=== PATIENT | male | born 1985 | race American Indian/Alaskan Native ===

== ENCOUNTER 2018-05-17 08:45 | Emergency (ER) | payer SELFPAY ==
--- NOTE | 2018-05-17 09:26 | Cat Scan Report ---
FINAL REPORT EXAM: CT HEAD/BRAIN WO CON HISTORY: trauma, LARA, +LOC TECHNIQUE: CT of the Head without IV contrast. PRIORS: None currently available. FINDINGS: There is no evidence for acute ischemia. There is no hemorrhage. There is no midline shift. There is no hydrocephalus. There is no mass. Age appropriate to-white matter attenuation is noted. There is no calvarial fracture. The temporal bones demonstrate aerated mastoid air cells. The middle ears appear unremarkable. Paranasal sinuses are unremarkable. Globes are intact. IMPRESSION: No acute intracranial findings.
--- NOTE | 2018-05-17 09:29 | Cat Scan Report ---
FINAL REPORT EXAM: CT CERVICAL SPINE WO CON HISTORY: Trauma TECHNIQUE: CT of the Cervical Spine without IV contrast. Coronal and sagittal reformatted images wer e provided. PRIORS: None currently available. FINDINGS: There is no fracture. There is no subluxation. There is no atlantooccipital dislocation. C1-C2: Intact. C4-C6: Xyjo-cb-glhijofg degenerative discs. No significant canal narrowing. Some neural foraminal tova rowing. Remaining cervical levels do not demonstrate significant canal or foraminal narrowing. Prevertebral soft tissue structures are unremarkable. IMPRESSION: No fracture.
[2018-05-17] MEDS ORDERED: SUBLIMAZE IV ONE (10:09)
[2018-05-17] MEDS ORDERED: ZOFRAN IV ONE (10:09)
--- NOTE | 2018-05-17 10:14 | Emergency Department Report ---
HPI - General Chief Complaint: Multiple Trauma Time Seen by Provider: 05/17/18 10:02 - [facility] HPI: Noel 26 The patient is a 32-year-old male presenting with a chief complaint of pain after fall from deck. The patient states he was working on a deck when he felt through the floor landing on the back of his head approximately 10 feet below. Patient admits to loss of consciousness he was told for about 30 seconds. Patient complains of pain head, neck, right knee and right shoulder. Patient gets his pain score 10/10. Location: [See above] Duration: [See above] Quality: Pain Severity: 10 Modifying factors: [see above] Context: [see above] Mode of transportation: [not driving] ED Past Medical Hx - Past Medical History Previous Medical History?: No - Surgical History Past Surgical History?: No - Family History Family history: no significant - Social History Smoking Status: Never Smoker Substance Use Type: None (denies illicit drug use) - Medications Home Medications: Home Medications Medication Instructions Recorded Confirmed Last Taken Type Cyclobenzaprine [Flexeril] 10 mg PO TID PRN #14 tablet 10/31/15 Unknown Rx HYDROcodone/APAP 5-325 [Tad 1 - 2 each PO Q6HR PRN #14 tablet 10/31/15 Unknown Rx 5/325] Ibuprofen [Motrin 800 MG tab] 800 mg PO Q8HR PRN #20 tablet 10/31/15 Unknown Rx Cyclobenzaprine [Flexeril] 10 mg PO TID PRN #15 tablet 01/24/16 Unknown Rx Ibuprofen [Motrin 800 MG tab] 800 mg PO Q8HR PRN #20 tablet 01/24/16 Unknown Rx Cyclobenzaprine [Flexeril] 10 mg PO TID PRN #14 tablet 05/17/18 Unknown Rx HYDROcodone/APAP 5-325 [Tad 1 - 2 each PO Q6HR PRN #14 tablet 05/17/18 Unknown Rx 5/325] Ibuprofen [Motrin 800 MG tab] 800 mg PO Q8HR PRN #20 tablet 05/17/18 Unknown Rx ED Review of Systems ROS: Stated complaint: FALLEN OFF DECK/NECK/BACK PAIN Other details as noted in HPI Constitutional: no symptoms reported Eyes: denies: eye pain ENT: denies: throat pain Respiratory: no symptoms reported Cardiovascular: denies: chest pain Endocrine: no symptoms reported Gastrointestinal: abdominal pain Genitourinary: denies: dysuria Musculoskeletal: back pain, arthralgia Neurological: headache Physical Exam - Physical Exam Vital Signs: Vital Signs 05/17/18 08:54 Respiratory 18 Rate O2 Sat by Pulse 100 Oximetry Vital Signs 05/17/18 05/17/18 05/17/18 08:54 11:27 11:57 Temperature Pulse Rate Respiratory 18 16 16 Rate Blood Pressure [Left] O2 Sat by Pulse 100 Oximetry 05/17/18 14:25 Temperature 98.4 F Pulse Rate 88 Respiratory 20 Rate Blood Pressure 144/84 [Left] O2 Sat by Pulse 99 Oximetry Physical Exam: GENERAL: The patient is well-developed well-nourished male lying on stretcher not appearing to be in acute distress. [] HEENT: Normocephalic. Atraumatic. Extraocular motions are intact. Patient has moist mucous membranes. NECK: Supple. Mild cervical axial tenderness to palpation. No axial step-offs CHEST/LUNGS: Clear to auscultation. There is no respiratory distress noted. HEART/CARDIOVASCULAR: Regular. There is no tachycardia. There is no gallop rub or murmur. ABDOMEN: Abdomen is soft, with discomfort to palpation in the right upper quadrant and right lower quadrant. Patient has normal bowel sounds. There is no abdominal distention. SKIN: There is no rash. There is no edema. There is no diaphoresis. NEURO: The patient is awake, alert, and oriented. The patient is cooperative. The patient has no focal neurologic deficits. The patient has normal speech MUSCULOSKELETAL: There is tenderness to palpation of the midthoracic spine and lower lumbar spine. No axial step-offs. ED Course Vital Signs 05/17/18 08:54 Respiratory 18 Rate O2 Sat by Pulse 100 Oximetry ED Medical Decision Making - Lab Data Result diagrams: 05/17/18 10:16 05/17/18 10:16 Laboratory Tests 05/17/18 05/17/18 05/17/18 10:16 10:16 10:16 WBC 4.4 L RBC 4.95 Hgb 13.9 Hct 42.7 MCV 86 MCH 28 MCHC 33 RDW 13.1 L Plt Count 151 Lymph % (Auto) 38.4 H Villalba % (Auto) 10.3 H Eos % (Auto) 4.2 Baso % (Auto) 1.2 Lymph # 1.7 Villalba # 0.5 Eos # 0.2 Baso # 0.1 Seg Neutrophils % 45.9 Seg Neutrophils # 2.0 Sodium 140 Potassium 4.7 Chloride 102.7 Carbon Dioxide 29 Anion Gap 13 BUN 15 Creatinine 1.1 Estimated GFR > 60 BUN/Creatinine Ratio 14 Glucose 98 Calcium 8.8 Total Bilirubin 1.00 AST 36 ALT 22 Alkaline Phosphatase 47 Total Protein 6.2 L Albumin 4.1 Albumin/Globulin Ratio 2.0 Blood Type B POSITIVE Antibody Screen Negative - Radiology Data Radiology results: report reviewed (CT head, CT cervical spine, right shoulder x-ray, lumbar spine x-ray, thoracic spine x-ray, right knee x-ray, CT abdomen and pelvis), image reviewed (CT head, CT cervical spine, right shoulder thoracic spine x-ray, lumbar spine x-ray, right knee x-ray, CT abdomen and pelvis) interpreted by me: Right shoulder x-ray-no acute fracture, no dislocation Right knee x-ray-no acute fracture Thoracic spine x-ray-no acute fracture Lumbar spine x-ray-no acute fracture Findings [facility] [address] [place] [address] Cat Scan Report Signed Patient: ARIN TORRES MR#: [id number] : 1985 Acct:[id number] Age/Sex: 32 / M ADM Date: 05/17/18 Loc: ED Attending Dr: Ordering Physician: KEVEN SALAZAR MD Date of Service: 05/17/18 Procedure(s): CT head/brain wo con Accession Number(s): [id number] cc: ED MD MARIE FINAL REPORT EXAM: CT HEAD/BRAIN WO CON HISTORY: trauma, LARA, +LOC TECHNIQUE: CT of the Head without IV contrast. PRIORS: None currently available. FINDINGS: There is no evidence for acute ischemia. There is no hemorrhage. There is no midline shift. There is no hydrocephalus. There is no mass. Age appropriate to-white matter attenuation is noted. There is no calvarial fracture. The temporal bones demonstrate aerated mastoid air cells. The middle ears appear unremarkable. Paranasal sinuses are unremarkable. Globes are intact. IMPRESSION: No acute intracranial findings. Transcribed By: TYM Dictated By: LANE HENRIQUEZ MD Electronically Authenticated By: LANE HENRIQUEZ MD Signed Date/Time: 05/17/18925 DD/ 4 TD/TT: 05/17/[address] [address] Cat Scan Report Signed Patient: ARIN TORRES MR#: [id number] : 1985 Acct:[id number] Age/Sex: 32 / M ADM Date: 05/17/18 Loc: ED Attending Dr: Ordering Physician: KEVEN SALAZAR MD Date of Service: 05/17/18 Procedure(s): CT cervical spine wo con Accession Number(s): [id number] cc: KEVEN SALAZAR MD FINAL REPORT EXAM: CT CERVICAL SPINE WO CON HISTORY: Trauma TECHNIQUE: CT of the Cervical Spine without IV contrast. Coronal and sagittal reformatted images were provided. PRIORS: None currently available. FINDINGS: There is no fracture. There is no subluxation. There is no atlantooccipital dislocation. C1-C2: Intact. C4-C6: Zxat-hh-lyxmrvpm degenerative discs. No significant canal narrowing. Some neural foraminal narrowing. Remaining cervical levels do not demonstrate significant canal or foraminal narrowing. Prevertebral soft tissue structures are unremarkable. IMPRESSION: No fracture. Transcribed By: TYM Dictated By: LANE HENRIQUEZ MD Electronically Authenticated By: LANE HENRIQUEZ MD Signed Date/Time: 05/17/18928 DD/ 7 TD/TT: 05/17/[address] [address] XRay Report Signed Patient: ARIN TORRES MR#: [id number] : 1985 Acct:[id number] Age/Sex: 32 / M ADM Date: 05/17/18 Loc: ED Attending Dr: Ordering Physician: JOHNSON JOHNSON MD Date of Service: 05/17/18 Procedure(s): XR spine thoracic 3V Accession Number(s): [id number] cc: JOHNSON JOHNSON MD Fluoro Time In Minutes: RIGHT SHOULDER: Fall, pain. Routine views demonstrate normal bony and soft tissue structures with normal joint alignment of the shoulder. IMPRESSION: Normal study. Thoracic spine: Fall, pain. AP and lateral views demonstrates very minimal anterior wedging of the T12 body. No evidence of fracture deformity is noted. There is mild narrowing of the T12-L1 interspace. Minimal degenerative spurs are noted at the T11-12 interspace. The bones are well-mineralized. Normal alignment. Impression: No acute finding suspected. Lower thoracic degenerative change. AP AND LATERAL LUMBOSACRAL SPINE: Trauma, pain. The vertebral bodies are well mineralized and normal in alignment and vertebral height with well preserved interspace distances. The visualized portions of the posterior elements are normal. IMPRESSION: Normal study. Transcribed By: [facility] Dictated By: SHMUEL JOHNSON MD Electronically Authenticated By: SHMUEL JOHNSON MD Signed Date/Time: 05/17/18 1106 DD/ 1104 TD/TT: 05/17/181105 Findings [address] [address] XRay Report Signed Patient: ARIN TORRES MR#: [id number] : 1985 Acct:[id number] Age/Sex: 32 / M ADM Date: 05/17/18 Loc: ED Attending Dr: Ordering Physician: JOHNSON JOHNSON MD Date of Service: 05/17/18 Procedure(s): XR knee 3V RT Accession Number(s): [id number] cc: JOHNSON JOHNSON MD Fluoro Time In Minutes: RIGHT KNEE: Fall, pain. The bony architecture is intact without evidence of fracture or dislocation. No significant soft tissue abnormality is seen. IMPRESSION: Normal right knee. Transcribed By: [facility] Dictated By: SHMUEL JOHNSON MD Electronically Authenticated By: SHMUEL JOHNSON MD Signed Date/Time: 05/17/18 110 DD/ 1103 TD/TT: 05/17/181102 [address] [address] Cat Scan Report Signed Patient: ARIN TORRES MR#: [id number] : 1985 Acct:[id number] Age/Sex: 32 / M ADM Date: 05/17/18 Loc: ED Attending Dr: Ordering Physician: JOHNSON JOHNSON MD Date of Service: 05/17/18 Procedure(s): CT abdomen pelvis w con Accession Number(s): [id number] cc: JOHNSON JOHNSON MD FINAL REPORT EXAM: CT ABDOMEN PELVIS W CON HISTORY: right-sided abd pain after fall from 10 feet. TECHNIQUE: CT of the abdomen and pelvis was performed after the administration of intravenous contrast. Subsequently, CT of the abdomen and pelvis was performed in the delayed phase. 100 cc of Omnipaque 300 intravenous contrast were given. Reconstructions were included in the coronal and sagittal planes. PRIORS: 10/30/2015. FINDINGS: Lower thorax: Bilateral dependent atelectasis is seen. The visualized portions of the heart are normal. Liver: The liver is normal in attenuation. No intrahepatic biliary duct dilation. No focal hepatic lesions. No hepatic laceration. Gallbladder/ biliary system: No cholelithiasis. The common bile duct appears nondilated. Spleen: No evidence of splenic laceration. Pancreas: No evidence of pancreatic laceration. Kidneys: No evidence of renal laceration. Adrenal glands: No adrenal masses. Vasculature: The abdominal and pelvic vasculature is patent without variant anatomy. Lymph nodes: No enlarged lymph nodes are seen in the abdomen or pelvis. Bowel, mesentery, peritoneum: No bowel obstruction. No free air. Small volume of free fluid is seen in the pelvis. The appendix is normal. No colonic diverticulosis. No bowel wall thickening. Urinary bladder: No filling defects are seen. Pelvis: There is a small volume of free fluid in the pelvis which is slightly higher in attenuation than simple fluid. Abdominal wall: There is a small fat containing umbilical hernia. Bones: No acute or chronic osseous finding. IMPRESSION: 1. Small volume of free fluid in the pelvis which is slightly higher in attenuation than simple fluid could represent mild hemorrhagic fluid. No evidence of solid organ injury. 2. Small fat containing umbilical hernia. Transcribed By: MG Dictated By: PHILLY GALLEGO MD Electronically Authenticated By: PHILLY GALLEGO MD Signed Date/Time: 05/17/18 1409 DD/ 07 TD/TT: 05/17/181407 - Medical Decision Making CT abdomen and pelvis findings discussed with patient. Strong warnings to ret urn should he develops any concerning symptoms. Patient verbalized understanding - Differential Diagnosis closed head injury, cervical fracture, cervical strain, liver laceration, Critical care attestation.: If time is entered above; I have spent that time in minutes in the direct care of this critically ill patient, excluding procedure time. ED Disposition Clinical Impression: Closed head injury, Acute cervical myofascial strain, Abdominal contusion, Contusion of right knee, Contusion of right shoulder Disposition: TO HOME OR SELFCARE Is pt being admited?: No Does the pt Need Aspirin: No Condition: Stable Instructions: Muscle Strain (ED), Minor Head Injury (ED) Additional Instructions: Return to the emergency department immediately should you develop worsening symptoms, fever, inability to tolerate food or liquid or any other concerns. Prescriptions: Cyclobenzaprine [Flexeril] 10 mg PO TID PRN #14 tablet PRN Reason: Muscle Spasm HYDROcodone/APAP 5-325 [Tad 5/325] 1 - 2 each PO Q6HR PRN #14 tablet PRN Reason: Pain Ibuprofen [Motrin 800 MG tab] 800 mg PO Q8HR PRN #20 tablet PRN Reason: Pain, Moderate (4-6) Referrals: JANES BEACH MD [Primary Care Provider] - 3-5 Days SHMUEL ERICKSON MD [Staff Physician] - 3-5 Days Time of Disposition: 14:28
[2018-05-17 10:34] LABS: Basophils # (Auto) 0.1 K/mm3 (0.0-0.1); Basophils % (Auto) 1.2 % (0.0-1.8); Eosinophils # (Auto) 0.2 K/mm3 (0.0-0.4); Eosinophils % (Auto) 4.2 % (0.0-4.3); Hematocrit 42.7 % (35.5-45.6); Hemoglobin 13.9 gm/dl (11.8-15.2); Lymphocytes # (Auto) 1.7 K/mm3 (1.2-5.4); Lymphocytes % (Auto) 38.4 % (13.4-35.0); Mean Corpuscular HGB Conc 33 % (32-34); Mean Corpuscular Volume 86 fl (84-94); Monocytes # (Auto) 0.5 K/mm3 (0.0-0.8); Monocytes % (Auto) 10.3 % (0.0-7.3); Platelet Count 151 K/mm3 (140-440); Red Blood Count 4.95 M/mm3 (3.65-5.03); Red Cell Distribution Width 13.1 % (13.2-15.2)
[2018-05-17 11:01] LABS: Alanine Aminotransferase 22 units/L (7-56); Albumin 4.1 g/dL (3.9-5); BUN/Creatinine Ratio 14; Blood Urea Nitrogen 15 mg/dL (9-20); Calcium 8.8 mg/dL (8.4-10.2); Hemolysis Index 23
--- NOTE | 2018-05-17 11:23 | XRay Report ---
RIGHT KNEE: Fall, pain. The bony architecture is intact without evidence of fracture or dislocation. No significant soft tissue abnormality is seen. IMPRESSION: Normal right knee.
--- NOTE | 2018-05-17 11:27 | XRay Report ---
RIGHT SHOULDER: Fall, pain. Routine views demonstrate normal bony and soft tissue structures with normal joint alignment of the shoulder. IMPRESSION: Normal study. Thoracic spine: Fall, pain. AP and lateral views demonstrates very minimal anterior wedging of the T12 body. No evidence of fracture deformity is noted. There is mild narrowing of the T12-L1 interspace. Minimal degenerative spurs are noted at the T11-12 interspace. The bones are well-mineralized. Normal alignment. Impression: No acute finding suspected. Lower thoracic degenerative change. AP AND LATERAL LUMBOSACRAL SPINE: Trauma, pain. The vertebral bodies are well mineralized and normal in alignment and vertebral height with well preserved interspace distances. The visualized portions of the posterior elements are normal. IMPRESSION: Normal study.
--- NOTE | 2018-05-17 14:09 | Cat Scan Report ---
FINAL REPORT EXAM: CT ABDOMEN PELVIS W CON HISTORY: right-sided abd pain after fall from 10 feet. TECHNIQUE: CT of the abdomen and pelvis was performed after the administration of intravenous contra st. Subsequently, CT of the abdomen and pelvis was performed in the delayed phase. 100 cc of Omnipaqu e 300 intravenous contrast were given. Reconstructions were included in the coronal and sagittal planes. PRIORS: 10/30/2015. FINDINGS: Lower thorax: Bilateral dependent atelectasis is seen. The visualized portions of the heart are raymundo l. Liver: The liver is normal in attenuation. No intrahepatic biliary duct dilation. No focal hepatic le sions. No hepatic laceration. Gallbladder/ biliary system: No cholelithiasis. The common bile duct appears nondilated. Spleen: No evidence of splenic laceration. Pancreas: No evidence of pancreatic laceration. Kidneys: No evidence of renal laceration. Adrenal glands: No adrenal masses. Vasculature: The abdominal and pelvic vasculature is patent without variant anatomy. Lymph nodes: No enlarged lymph nodes are seen in the abdomen or pelvis. Bowel, mesentery, peritoneum: No bowel obstruction. No free air. Small volume of free fluid is seen i n the pelvis. The appendix is normal. No colonic diverticulosis. No bowel wall thickening. Urinary bladder: No filling defects are seen. Pelvis: There is a small volume of free fluid in the pelvis which is slightly higher in attenuation t dailey simple fluid. Abdominal wall: There is a small fat containing umbilical hernia. Bones: No acute or chronic osseous finding. IMPRESSION: 1. Small volume of free fluid in the pelvis which is slightly higher in attenuation than simple fluid could represent mild hemorrhagic fluid. No evidence of solid organ injury. 2. Small fat containing umbilical hernia.
[2018-05-17 14:26] VITALS: BP 144/84
== END 2018-05-17 14:46 | disposition home or self-care (01) ==
LOC: ED 08:45
DX: S16.1XXA Strain of muscle, fascia and tendon at neck level, initial encounter (principal); S80.01XA Contusion of right knee, initial encounter; S40.011A Contusion of right shoulder, initial encounter; S30.1XXA Contusion of abdominal wall, initial encounter; S09.90XA Unspecified injury of head, initial encounter; W10.8XXA Fall (on) (from) other stairs and steps, initial encounter; Y93.89 Activity, other specified; Y92.89 Other specified places as the place of occurrence of the external cause; Y99.8 Other external cause status
CPT/HCPCS: 36415; 70450; 72072; 72100; 72125; 73030; 73562; 74177; 80053; 85025; 86850; 86900; 86901; 96374; 96375; 99284; J2405; J3010; Q9967

== ENCOUNTER 2021-06-11 08:05 | Emergency (ER) | payer SELFPAY ==
[2021-06-11 08:12] VITALS: BP 124/80
--- NOTE | 2021-06-11 08:33 | Emergency Department Report ---
ED Fall [facility] - General Chief Complaint: Fall Stated Complaint: FALL Time Seen by Provider: 06/11/21 08:24 Source: patient Mode of arrival: Ambulatory - History of Present Illness Initial Comments: 35-year-old male who denies any significant past medical history presents to the ER today for evaluation after fall injury. Patient states that the incident occurred 2 hours ago. Location was at his tenants house. Patient states that he was walking down the steps, when he lost his footing, causing him to fall. He states that he fell down about 10 steps. He states that he did hit his head and he was told that he had lost consciousness for about 15 seconds. He did vomit once after. He complains of headache, neck pain, and knee pain. He has bruising to his forehead, right posterior neck, and knee. He denies any alcohol abuse. He is not on any blood thinners. MD Complaint: fall, other (head injury; +LOC; neck and right knee pain) -: hour(s) (2) Fall From: down stairs (#) (10) - Related Data Previous Rx's Medication Instructions Recorded Last Taken Type HYDROcodone/APAP 5-325 [Marion 1 each PO Q6HR PRN #12 tablet 06/11/21 Unknown Rx 5/325] methOCARBAMOL [Robaxin TAB] 750 mg PO Q8H PRN #30 tab 06/11/21 Unknown Rx Allergies Allergy/AdvReac Type Severity Reaction Status Date / Time No Known Allergies Allergy Verified 10/30/15 20:22 ED Review of Systems ROS: Stated complaint: FALL Other details as noted in HPI ED Past Medical Hx - Past Medical History Previous Medical History?: No - Surgical History Past Surgical History?: No - Social History Smoking Status: Never Smoker Substance Use Type: None (denies illicit drug use) - Medications Home Medications: Home Medications Medication Instructions Recorded Confirmed Last Taken Type HYDROcodone/APAP 5-325 [Marion 1 each PO Q6HR PRN #12 tablet 06/11/21 Unknown Rx 5/325] methOCARBAMOL [Robaxin TAB] 750 mg PO Q8H PRN #30 tab 06/11/21 Unknown Rx ED Physical Exam - General Limitations: No Limitations General appearance: alert, in no apparent distress - Head Head exam: Present: normocephalic, other (Bruising noted to patient's forehead. Tenderness over the area of bruising.) - Eye Eye exam: Present: normal appearance, PERRL, EOMI Pupils: Present: normal accommodation - Neck Neck exam: Present: tenderness (Tenderness palpation to the lower cervical spine, as well as tender to palpation to the right trapezius muscle. Bruising noted noted to the right posterior neck. Range of motion of the neck mildly reduced due to pain. No deformity or crepitus or step-off noted.), full ROM - Respiratory Respiratory exam: Present: normal lung sounds bilaterally. Absent: respiratory distress, wheezes, rales, rhonchi, stridor - Cardiovascular Cardiovascular Exam: Present: regular rate, normal rhythm, normal heart sounds - GI/Abdominal GI/Abdominal exam: Present: soft. Absent: distended, tenderness, guarding, rebound - Expanded Lower Extremity Exam Right Knee exam: Present: tenderness, swelling (Mild), ecchymosis (Mild bruising noted to the distal anterior aspect of the right thigh just above the knee. There is tenderness over the area.), full knee extension. Absent: deformity, crepidus, dislocation, erythema, effusion Neuro vascular tendon exam: Present: no vascular compromise. Absent: abnormal cap refill, motor deficit, sensory deficit, tendon deficit Gait: Positive: observed and normal - Neurological Exam Neurological exam: Present: alert, oriented X3, CN II-XII intact, normal gait - Psychiatric Psychiatric exam: Present: normal affect, normal mood - Skin Skin exam: Present: intact ED Course Vital Signs 06/11/21 08:10 Temperature 98.0 F Pulse Rate 70 Respiratory 18 Rate Blood Pressure 124/80 O2 Sat by Pulse 100 Oximetry ED Medical Decision Making - Radiology Data Radiology results: report reviewed Patient: ARIN TORRES MR#: [id number] : 1985 Acct:[id number] Age/Sex: 35 / M ADM Date: 06/11/21 Loc: ED Attending Dr: Ordering Physician: RAGHAV HENDERSON Date of Service: 06/11/21 Procedure(s): XR knee 3V RT Accession Number(s): [id number] cc: RAGHAV HENDERSON Fluoro Time In Minutes: RIGHT KNEE 3 VIEW(S) INDICATION / CLINICAL INFORMATION: knee injury; fall 10 steps COMPARISON: None available. FINDINGS: BONES / JOINT(S): There is a fracture along the lateral aspect of the patella with a small fracture fragment.. No other fractures are seen. The joint spaces are maintained. SOFT TISSUES: No significant abnormality. ADDITIONAL FINDINGS: None. Signer Name: Julien Carlton MD Signed: 06/11/2021 9:11 AM Workstation Name: [id number] Transcribed By: Dictated By: Julien Carlton MD Electronically Authenticated By: Julien Carlton MD Signed Date/Time: 06/11/21910 DD/ 4 TD/TT: Patient: ARIN TORRES MR#: [id number] : 1985 Acct:[id number] Age/Sex: 35 / M ADM Date: 06/11/21 Loc: ED Attending Dr: Ordering Physician: RAGHAV HENDERSON Date of Service: 06/11/21 Procedure(s): CT head/brain wo con Accession Number(s): [id number] cc: RAGHAV HENDERSON CT head/brain wo con INDICATION / CLINICAL INFORMATION: 35 years Male; head injury;+LOC; fall 10 steps. TECHNIQUE: Routine CT head without contrast. All CT scans at this location are performed using CT dose reduction for ALARA by means of automated exposure control. COMPARISON: None. FINDINGS: BRAIN / INTRACRANIAL CONTENTS: No acute hemorrhage, mass effect, midline shift, hydrocephalus, or acute, large territorial infarct. No signs of significant atrophy or chronic infarct. No significant white matter abnormality seen. CRANIOCERVICAL JUNCTION: No significant abnormality. ORBITS: No significant abnormality of visualized orbits. SINUSES / MASTOIDS: Visualized paranasal sinuses and mastoid air cells are essentially clear. ADDITIONAL FINDINGS: None. IMPRESSION: 1. No focal mass, hemorrhage, hydrocephalus, or acute, large territorial infarct. Signer Name: Adebayo Chao MD, III Signed: 06/11/2021 9:16 AM Workstation Name: [id number] Transcribed By: Dictated By: Adebayo Chao MD Electronically Authenticated By: Adebayo Chao MD Signed Date/Time: 06/11/21915 DD/ 5 TD/TT: Patient: ARIN TORRES MR#: [id number] : 1985 Acct:[id number] Age/Sex: 35 / M ADM Date: 06/11/21 Loc: ED Attending Dr: Ordering Physician: RAGHAV HENDERSON Date of Service: 06/11/21 Procedure(s): CT cervical spine wo con Accession Number(s): [id number] cc: RAGHAV HENDERSON . CT cervical spine wo con INDICATION / CLINICAL INFORMATION: 35 years Male; neck injury;fall 10 steps. TECHNIQUE: Axial CT images of the cervical spine were obtained. Sagittal and coronal reformatted images were produced. All CT scans at this location are performed using CT dose reduction for ALARA by means of automated exposure control. COMPARISON: None available. FINDINGS: POST-SURGICAL CHANGES: None. ALIGNMENT: No significant abnormality. VERTEBRAE: No signs of fracture. Vertebral bodies are grossly normal in height throughout. Significant osseous foraminal narrowing is seen on the right at C7-T1 from facet hypertrophy. Findings may affect the right C8 nerve. INTRAVERTEBRAL DISCS: There may be minimal disc space narrowing at various levels. There is no dominant herniation or canal stenosis appreciated. PARASPINAL SOFT TISSUES: No significant abnormality. ADDITIONAL FINDINGS: None. IMPRESSION: 1. No signs of acute bony trauma to the cervical spine. Signer Name: Adebayo Chao MD, III Signed: 06/11/2021 9:19 AM Workstation Name: [id number] Transcribed By: Dictated By: Adebayo Chao MD Electronically Authenticated By: Adebayo Chao MD Signed Date/Time: 06/11/21918 DD/ 6 TD/TT: - Medical Decision Making 1037: CT head and cervical spine shows nothing acute. X-ray of patient's right knee shows thhere is a fracture along the lateral aspect of the patella with a small fracture fragment.. No other fractures are seen. The joint spaces are maintained. Patient is currently awake alert and oriented x3. GCS of 15. He is neurologically intact. He is not toxic or ill-appearing. He is not in significant distress. Discussed all imaging results with patient. Discussed the diagnosis including the diagnosis of concussion with patient. He will be placed in a knee immobilizer and given crutches and instructed to follow-up with primary care doctor. Patient expressed understanding of all instructions and agree with plan. Patient was stable at time of discharge. Critical care attestation.: If time is entered above; I have spent that time in minutes in the direct care of this critically ill patient, excluding procedure time. ED Disposition Clinical Impression: Patellar fracture, Concussion, Cervical strain, acute Disposition: 01 HOME / SELF CARE / HOMELESS Is pt being admited?: No Does the pt Need Aspirin: No Condition: Stable Instructions: Concussion, Adult, Cervical Sprain, How to Use a Knee Brace, Patellar Fracture, Adult Additional Instructions: Recommend that you use the knee immobilizer as discussed. Use the crutches to help ambulate. Elevate your leg as often as possible. Apply ice to help with any swelling or pain. I do recommend close follow-up with icu specialist for further evaluation of your patella fracture. Your head CT was negative today for any acute bleed or any other abnormalities but given your head injury and brief loss of consciousness you likely had a mild concussion. Recommend close follow-up with your primary care doctor. Return to the ER if your symptoms changes or worsens in any way. Prescriptions: HYDROcodone/APAP 5-325 [Marion 5/325] 1 each PO Q6HR PRN #12 tablet PRN Reason: Pain methOCARBAMOL [Robaxin TAB] 750 mg PO Q8H PRN #30 tab PRN Reason: Muscle Spasm Referrals: JUAN F NEAL MD [Staff Physician] - 3-5 Days (Primary Care phsycian ) SHMUEL ERICKSON MD [Staff Physician] - 3-5 Days (Urban Design Consultant) Forms: Work/School Release Form(ED) Time of Disposition: 10:02
--- NOTE | 2021-06-11 09:15 | XRay Report ---
RIGHT KNEE 3 VIEW(S) INDICATION / CLINICAL INFORMATION: knee injury; fall 10 steps COMPARISON: None available. FINDINGS: BONES / JOINT(S): There is a fracture along the lateral aspect of the patella with a small fracture f ragment.. No other fractures are seen. The joint spaces are maintained. SOFT TISSUES: No significant abnormality. ADDITIONAL FINDINGS: None. Signer Name: Julien Carlton MD Signed: 06/11/2021 9:11 AM Workstation Name: [id number]
--- NOTE | 2021-06-11 09:21 | Cat Scan Report ---
CT head/brain wo con INDICATION / CLINICAL INFORMATION: 35 years Male; head injury;+LOC; fall 10 steps. TECHNIQUE: Routine CT head without contrast. All CT scans at this location are performed using CT dos e reduction for ALARA by means of automated exposure control. COMPARISON: None. FINDINGS: BRAIN / INTRACRANIAL CONTENTS: No acute hemorrhage, mass effect, midline shift, hydrocephalus, or acu te, large territorial infarct. No signs of significant atrophy or chronic infarct. No significant whi te matter abnormality seen. CRANIOCERVICAL JUNCTION: No significant abnormality. ORBITS: No significant abnormality of visualized orbits. SINUSES / MASTOIDS: Visualized paranasal sinuses and mastoid air cells are essentially clear. ADDITIONAL FINDINGS: None. IMPRESSION: 1. No focal mass, hemorrhage, hydrocephalus, or acute, large territorial infarct. Signer Name: Adebayo Chao MD, III Signed: 06/11/2021 9:16 AM Workstation Name: [id number]
--- NOTE | 2021-06-11 09:24 | Cat Scan Report ---
. CT cervical spine wo con INDICATION / CLINICAL INFORMATION: 35 years Male; neck injury;fall 10 steps. TECHNIQUE: Axial CT images of the cervical spine were obtained. Sagittal and coronal reformatted images were pr oduced. All CT scans at this location are performed using CT dose reduction for ALARA by means of aut omated exposure control. COMPARISON: None available. FINDINGS: POST-SURGICAL CHANGES: None. ALIGNMENT: No significant abnormality. VERTEBRAE: No signs of fracture. Vertebral bodies are grossly normal in height throughout. Significant osseous foraminal narrowing is seen on the right at C7-T1 from facet hypertrophy. Finding s may affect the right C8 nerve. INTRAVERTEBRAL DISCS: There may be minimal disc space narrowing at various levels. There is no domina nt herniation or canal stenosis appreciated. PARASPINAL SOFT TISSUES: No significant abnormality. ADDITIONAL FINDINGS: None. IMPRESSION: 1. No signs of acute bony trauma to the cervical spine. Signer Name: Adebayo Chao MD, III Signed: 06/11/2021 9:19 AM Workstation Name: [id number]
== END 2021-06-11 11:02 | disposition home or self-care (01) ==
LOC: ED 08:05
DX: S82.001A Unspecified fracture of right patella, initial encounter for closed fracture (principal); S16.1XXA Strain of muscle, fascia and tendon at neck level, initial encounter; W19.XXXA Unspecified fall, initial encounter; Y93.89 Activity, other specified; Y92.89 Other specified places as the place of occurrence of the external cause; Y99.8 Other external cause status
CPT/HCPCS: 70450; 72125; 99284